=== PATIENT | male | born 1990 | race African-American/Black ===

== ENCOUNTER 2021-04-02 16:37 | Emergency (ER) | payer OTHER ==
[~2021-04-02] VITALS: Ht 182.9 cm; Wt 79.4 kg
[2021-04-02 16:49] VITALS: BP 138/65
[2021-04-02 17:59] LABS: HEMATOCRIT 42.8 % (42.0-52.0); HEMOGLOBIN 14.5 gm/dL (14.0-18.0); MCH 29.4 pg (26.0-34.0); MCHC 33.8 g/dL (28.0-37.0); MCV 86.9 fL (80.0-100.0); RBC 4.93 mil/uL (4.50-6.00); WBC 3.6 thou/uL (4.0-11.0)
[2021-04-02 18:18] LABS: CREATININE 1.3 mg/dL (0.7-1.3); POTASSIUM 4.2 mmol/L (3.5-5.1)
[2021-04-02] MEDS ORDERED: BACTRIM DS TAB1 EACH PO (18:26)
== END 2021-04-02 18:27 | disposition home or self-care (01) ==
LOC: ER 16:37
PROVIDERS: Physician Assistant
DX: S70.262A Insect bite (nonvenomous), left hip, initial encounter (principal); M25.552 Pain in left hip; W57.XXXA Bitten or stung by nonvenomous insect and other nonvenomous arthropods, initial encounter; Y92.89 Other specified places as the place of occurrence of the external cause; Y93.89 Activity, other specified; Y99.8 Other external cause status